=== PATIENT | male | born 1950 | race Caucasian/White ===

== ENCOUNTER 2018-04-10 05:49 | Inpatient (IN) ==
[2018-04-10] MEDS ORDERED: Chlorhexidine Gluconate 2% 1 Pack (2 Cloths) TOPICAL ONE (06:27)
[2018-04-10] MEDS ORDERED: Metoprolol Tartrate 25 MG Tablet PO ONE (06:27)
[2018-04-10] MEDS ORDERED: Bupivacaine/Epinephrine PF Inj 0.5% 30 ML Vial ONE (06:56)
[2018-04-10] MEDS ORDERED: Heparin 10,000 UNITS/10 ML Vial (for IV use) ONE ×2 (06:57→07:00)
[2018-04-10] MEDS ORDERED: Protamine Sulfate Inj 50 MG/5 ML Vial ONE (06:57)
[2018-04-10] MEDS ORDERED: Heparin - SQ 10,000 UNITS/ML Vial ONE (06:59)
[2018-04-10] MEDS ORDERED: Sodium Chlor 0.9% Inj 500 ML IV.SIG SCH (07:00)
[2018-04-10] MEDS ORDERED: ceFAZolin 1 GM Premix Inj 1 GM/50 ML PIGGYBACK IV.SIG ONE (07:00)
[2018-04-10 08:05] LABS: Baso % (Auto) 0.6 % (0.0-2.0); Eos # (Auto) 0.3 th/mm3 (0.0-0.4); Eos % (Auto) 3.7 % (0.0-4.0); Hematocrit 43.5 % (39.0-51.0); Hemoglobin 15.4 gm/dL (13.0-17.0); Lymph % (Auto) 13.1 % (9.0-44.0); Mean Corpuscular HGB Conc 35.5 % (32.0-36.0); Mean Corpuscular Hemoglobin 33.3 pg (27.0-34.0); Mean Corpuscular Volume 93.7 fL (80.0-100.0); Mono # (Auto) 0.6 th/mm3 (0.0-0.9); Mono % (Auto) 7.6 % (0.0-8.0); Neut # (Auto) 5.6 th/mm3 (1.8-7.7); Platelet Count 159 th/mm3 (150-450); Red Blood Count 4.64 mil/mm3 (4.50-5.90); Red Cell Distribution Width 13.7 % (11.6-17.2); White Blood Count 7.4 th/mm3 (4.0-11.0)
--- NOTE | 2018-04-10 08:16 | ECG ---
Date Performed: 04/10/2018 Time Performed: 06:46:41 PTAGE: 68 years EKG: Sinus rhythm NORMAL ECG PREVIOUS TRACING : 04/19/2016 12.18 DOCTOR: Louis Cash Interpretating Date/Time 04/10/2018 08:15:43
[2018-04-10 08:21] LABS: Albumin 3.9 g/dL (3.4-5.0); Anion Gap 8 meq/L (5-15); Aspartate Aminotransferase 28 U/L (15-37); Blood Urea Nitrogen 14 mg/dL (7-18); Calcium 9.6 mg/dL (8.5-10.1); Carbon Dioxide 25.3 meq/L (21.0-32.0); Chloride 105 meq/L (98-107); Glomerular Filtration Rate Greater Than 89 mL/min (>89); Glucose,Random 174 mg/dL (74-106); Potassium 4.7 meq/L (3.5-5.1); Sodium 138 meq/L (136-145)
[2018-04-10 08:24] LABS: Alanine Aminotransferase 48 U/L (12-78); Alkaline Phosphatase 95 U/L (45-117); Total Protein 7.4 g/dL (6.4-8.2)
[2018-04-10] MEDS ORDERED: Iohexol 300 MG/ML 50 ML Vial (for Rad Diag) IVCONTRAST ONE (09:06)
[2018-04-10] MEDS: Iohexol 300 MG/ML 50 ML Vial (for Rad Diag) IVCONTRAST ONE ×2 (09:07→09:13)
[2018-04-10] MEDS ORDERED: fentaNYL Citrate Inj 100 MCG/2 ML Ampul ONE ×3 (10:08→10:10)
[2018-04-10] MEDS ORDERED: Acetaminophen 325 MG Tablet PO PRN (10:38)
[2018-04-10] MEDS ORDERED: hydrALAZINE HCl Inj 20 MG/ML Vial IV.PUSH PRN (10:38)
[2018-04-10] MEDS ORDERED: Post-op Orders (for Pharmacy) OTHER STA (10:38)
[2018-04-10] MEDS ORDERED: Dextrose 50% in Water 50 ML Vial IV.PUSH PRN (11:07)
--- NOTE | 2018-04-10 11:12 | P.BOP ---
Date of procedure: 04/10/18 Procedure: Left Femoral Endarterectomy with Bovine Patch Angioplasty Anesthesia: GETA, local Surgeon: Davis Bains MD Flight Operations Inspector: Omid Patel Estimated blood loss (mL): 30 Pathology: none sent Condition: stable Disposition: floor
[2018-04-10] MEDS: Insulin NovoLIN Regular Correctional Sugar Inj SQ SCH ×3 (12:17→21:10)
--- NOTE | 2018-04-10 19:05 | MP ---
cc: Davis Bains MD DATE OF OPERATION: 04/10/2018 PREOPERATIVE DIAGNOSIS: Disabling left lower extremity claudication - ischemic versus spinal stenosis etiology. POSTOPERATIVE DIAGNOSIS: Disabling left lower extremity claudication - ischemic versus spinal stenosis etiology. OPERATIVE PROCEDURE: Aortofemoral arteriogram. Left femoral endarterectomy with bovine patch angioplasty. SURGEON: Davis Bains MD DIRECTOR OF ASSESSMENT: MICHELLE Henry ANESTHESIA: General/local. DESCRIPTION OF PROCEDURE: With the patient in the supine position, general anesthesia was induced. The abdomen, both groins, and thighs were prepped with Betadine and draped in a sterile fashion. Appropriate IV antibiotic prophylaxis was administered. Following a protocol timeout, the skin and subcutaneous tissue within the left groin area of proposed incision was thoroughly infiltrated with 0.5% Marcaine with epinephrine. A curvilinear incision was performed along Iris's lines within the inguinal skin crease and dissection continued sharply through the underlying subcutaneous tissue. The distal external iliac, entire common, proximal, superficial and profunda femoral arteries were circumferentially mobilized and encircled with double looped vessel loops for proximal and distal control. An arterial needle was inserted into the mid common femoral lumen, a J-wire advanced retrograde into the iliac artery and a 5-[place] hemostatic sheath was deployed over the J-wire. An Advantage guidewire Omni catheter combination was negotiated into the subrenal aorta. Aortofemoral arteriogram was then accomplished by injecting diluted contrast within the Omni catheter outlining runoff throughout the distal aorta both iliac, common femoral arteries. The distal aorta was concentrically calcified. The right common iliac exhibited several focal areas of eccentric, calcified plaque which did not appear to be flow-limiting. Flow continued unrestricted into the right external iliac, common superficial and profunda femoral arteries. On the left side, the previously placed common iliac stent remained widely patent. The proximal external iliac exhibited a focal, approximately 40%, eccentric constriction which did not appear to be flow impairing. The common femoral bifurcation was almost completely occluded by an eccentric calcified focal plaque. The left profunda and SFA were patent throughout. The Omni catheter was retracted across the focal external iliac constriction with pressure measurements. There was no pressure differential above or below the 40% constriction, proving it was not hemodynamically significant and did not require endovascular intervention. Attention was then directed to removal of the nearly completely occlusive plaque within the distal left common iliac. The distal external iliac artery was occluded with a small Satinsky clamp, and the SFA and profunda arteries were occluded with double looped vessel loop. A vertical arteriotomy was performed from the point of sheath insertion the mid common femoral onto the proximal SFA. The densely calcified eccentric coral-form plaque was completely endarterectomized, the neolumen copiously irrigated with heparinized saline. Bovine patch was secured to the endarterectomy incision with continuous 6-0 Prolene. Flow was reestablished into the common, superficial, and profunda femoral arteries as confirmed by Doppler signal. Heparin, 5000 units, which had been administered before occluding the femoral, was reversed at completion of the patch angioplasty. Strict hemostasis was assured. The incision was closed with 2 separate deep layers of continuous 4-0 Monocryl. The skin was reapproximated with continuous subcuticular 5-0 Monocryl. Steri-Strips and sterile dressing applied. At the conclusion of the procedure, left dorsalis pedis pulse is easily palpable with triphasic Doppler flow. MD JONO Eugene/katelyn , 05:20 PM , 05:32 PM
[2018-04-10] MEDS ORDERED: Insulin Detemir Inj 1,000 UNIT/10 ML Vial SQ SCH (21:00)
[2018-04-10] MEDS: Glimepiride 4 MG Tablet PO SCH (21:08)
[2018-04-10] MEDS: Budesonide-Formoterol 160/4.5 MCG 6 GM Inhaler INH SCH (21:08)
[2018-04-11] MEDS: Insulin NovoLIN Regular Correctional Sugar Inj SQ SCH ×4 (03:42→16:14)
[2018-04-11 08:25] VITALS: RESP 20
[2018-04-11] MEDS ORDERED: dilTIAZem CD 120 MG Capsule PO SCH (09:00)
[2018-04-11] MEDS ORDERED: hydroCHLOROthiazide 25 MG Tablet PO SCH (09:00)
[2018-04-11] MEDS ORDERED: Multivitamin/Minerals Therapeutic Tablet PO SCH (09:00)
[2018-04-11] MEDS: Budesonide-Formoterol 160/4.5 MCG 6 GM Inhaler INH SCH (09:05)
[2018-04-11] MEDS: Glimepiride 4 MG Tablet PO SCH (09:05)
[2018-04-11] MEDS ORDERED: Heparin - SQ 10,000 UNITS/ML Vial SQ SCH (10:00)
[2018-04-11 12:06] VITALS: O2SAT 98
[2018-04-11 14:59] VITALS: BP 145/69; PULSE 64; TEMP 98.7
== END 2018-04-11 18:14 | disposition home or self-care (01) ==
LOC: HSDI 05:49 → HCPC 18:50
PROVIDERS: ADMIT Surgery Vascular Surgery; ATTEND Surgery Vascular Surgery